=== PATIENT | male | born 1995 | race Caucasian/White ===

== ENCOUNTER 2017-01-12 07:36 | Emergency (ER) | payer MEDICAID ==
[~2017-01-12] VITALS: Ht 182.9 cm; Wt 127.0 kg
[2017-01-12 07:51] VITALS: BP 143/81
[2017-01-12 08:04] LABS: BILIRUBIN,URINE NEGATIVE (NEG); GLUCOSE,URINE NEGATIVE (NEG); NITRITE,URINE NEGATIVE (NEG); PROTEIN,URINE NEGATIVE (NEG-TRACE); UROBILINOGEN,URINE 0.2 mg/dL (0.2 mg/dL)
[2017-01-12] MEDS ORDERED: IV NORMAL SALINE 1000ML BAG 1,000 ML IV SCH (08:06)
[2017-01-12 08:10] LABS: BACTERIA,URINE 0 /HPF (0-FEW); RBC,URINE 0 /HPF (0-2); WBC,URINE 0 /HPF (0-4)
[2017-01-12] MEDS ORDERED: KETOROLAC 15 MG/ML VIAL. IV ONE (08:15)
[2017-01-12] MEDS ORDERED: ONDANSETRON PF 4 MG/2 ML VIAL. IV ONE (08:15)
--- NOTE | 2017-01-12 08:15 | ED.ADGEN ---
Past Medical History Past Medical History: Asthma, Diverticulitis Past Surgical History: No Surgical History Alcohol Use: Rarely Drug Use: None Adult General Chief Complaint Chief Complaint: ABDOMINAL PAIN HPI HPI Patient is a 21 year old man, history of asthma, diverticulitis, which was diagnosed one year ago, who presents to the emergency department with a complaint of nausea, vomiting, diarrhea, and abdominal pain located in left lower quadrant. Patient states that the abdominal pain feels "like when they diagnosed my diverticulitis". Is diaphoretic upon arousing the emergency department, states that he's had 2 episodes of vomiting, food and fluid, and 2 episodes of loose brown stool this morning associated with abdominal cramping, currently his pain is a 7 out of 10. He denies any sick contacts or exposures, denies any travel or surgery, no blood in his emesis or stool. Patient has not taken any medications prior to going to the ED today. Denies any urinary complaints, denies any injuries. Review of Systems Review of Systems Constitutional: Denies fever or chills. [] Eyes: Denies change in visual acuity. [] HENT: Denies nasal congestion or sore throat. [] Respiratory: Denies cough or shortness of breath. [] Cardiovascular: Denies chest pain or edema. [] GI: Cramping left lower quadrant abdominal pain, nausea, vomiting, diarrhea. No bloody stools or bloody emesis. : Denies dysuria. [] Musculoskeletal: Denies back pain or joint pain. [] Integument: Denies rash. [] Neurologic: Denies headache, focal weakness or sensory changes. [] Endocrine: Denies polyuria or polydipsia. [] Lymphatic: Denies swollen glands. [] Psychiatric: Denies depression or anxiety. [] Current Medications Current Medications Current Medications Medications (Trade) Dose Ordered Sig/Declan Start Time Stop Time Status Last Admin Dose Admin Info (Do NOT chart on this entry -- for MONITORING) 1 each PRN DAILY PRN 01/12/17 08:30 01/14/17 08:29 Iohexol (Omnipaque 300 Mg/ml) 75 ml 1X ONCE 01/12/17 08:30 01/12/17 08:31 DC 01/12/17 08:50 75 ML Ketorolac Tromethamine (Toradol) 10 mg 1X ONCE 01/12/17 08:15 01/12/17 08:16 DC 01/12/17 08:35 10 MG Levofloxacin (Levaquin) 750 mg 1X ONCE 01/12/17 10:00 01/12/17 10:01 DC 01/12/17 10:16 750 MG Metronidazole (Flagyl) 500 mg 1X ONCE 01/12/17 10:00 01/12/17 10:01 DC 01/12/17 10:16 500 MG Ondansetron HCl (Zofran) 4 mg 1X ONCE 01/12/17 08:15 01/12/17 08:16 DC 01/12/17 08:34 4 MG Oxycodone/ Acetaminophen (Percocet 10/325) 1 tab 1X ONCE 01/12/17 10:00 01/12/17 10:01 DC 01/12/17 10:16 1 TAB Sodium Chloride (Iv Sodium Chloride 0.9% 1000ml Bag) 1,000 ml @ 1,000 mls/hr Q1H 01/12/17 08:06 01/12/17 09:05 DC 01/12/17 08:32 1,000 MLS/HR Allergies Allergies Allergies Coded Allergies Type Severity Reaction Last Updated Verified No Known Drug Allergies 01/12/17 No Physical Exam Physical Exam Constitutional: Well developed, obese, no acute distress, patient diaphoretic, non-toxic appearance. [] HENT: Normocephalic, atraumatic, bilateral external ears normal, oropharynx moist, no oral exudates, nose normal. [] Eyes: PERRLA, EOMI, conjunctiva normal, no discharge. [] Neck: Normal range of motion, no tenderness, supple, no stridor. [] Cardiovascular:Heart rate regular rhythm, no murmur, S1, S2, no rubs or gallops. [] Lungs & Thorax: Bilateral breath sounds clear to auscultation , no wheezing, rhonchi, rales. No chest or crepitus or tenderness. [] Abdomen: Bowel sounds normal, soft, obese, moderate tenderness palpation in the left lower quadrant, and sero-pubic region, no rebound, rigidity, no guarding, no masses, no pulsatile masses. [] Skin: Warm, diaphoretic, no erythema, no rash. [] Back: No tenderness, no CVA tenderness. [] Extremities: No tenderness, no cyanosis, no clubbing, ROM intact, no edema. Negative Homans sign. [] Neurologic: Alert and oriented X 3, normal motor function, normal sensory function, no focal deficits noted. [] Psychologic: Affect normal, judgement normal, mood normal. [] Current Patient Data Vital Signs Vital Signs Date Time Temp Pulse Resp B/P Pulse Ox O2 Delivery O2 Flow Rate FiO2 01/12/17 10:16 18 01/12/17 07:51 97.6 81 143/81 99 Room Air 97.6 Lab Values Laboratory Tests Test 01/12/17 07:50 01/12/17 08:08 01/12/17 08:24 Urine Collection Type Unknown Urine Color Yellow Urine Clarity Clear Urine pH 6.0 Urine Specific [place] >=1.030 Urine Protein Negativemg/dL (NEG-TRACE) Urine Glucose (UA) Negativemg/dL (NEG) Urine Ketones (Stick) Negativemg/dL (NEG) Urine Blood Negative (NEG) Urine Nitrite Negative (NEG) Urine Bilirubin Negative (NEG) Urine Urobilinogen Dipstick 0.2mg/dL (0.2 mg/dL) Urine Leukocyte Esterase Negative (NEG) Urine RBC 0/HPF (0-2) Urine WBC 0/HPF (0-4) Urine Bacteria 0/HPF (0-FEW) Urine Mucus Slight/LPF Urine Opiates Screen Neg (NEG) Urine Methadone Screen Neg (NEG) Urine Barbiturates Neg (NEG) Urine Phencyclidine Screen Neg (NEG) Urine Amphetamine/Methamphetamine Neg (NEG) Urine Benzodiazepines Screen Neg (NEG) Urine Cocaine Screen Neg (NEG) Urine Cannabinoids Screen Pos (NEG) Urine Ethyl Alcohol Neg (NEG) White Blood Count 8.1x10^3/uL (4.0-11.0) Red Blood Count 5.89x10^6/uL (4.30-5.70) H Hemoglobin 16.3g/dL (13.0-17.5) Hematocrit 48.4% (39.0-53.0) Mean Corpuscular Volume 82fL (79-100) Mean Corpuscular Hemoglobin 28pg (25-35) Mean Corpuscular Hemoglobin Concent 34g/dL (31-37) Red Cell Distribution Width 12.7% (11.5-14.5) Platelet Count 195x10^3/uL (140-400) Neutrophils (%) (Auto) 81% (31-73) H Lymphocytes (%) (Auto) 10% (24-48) L Monocytes (%) (Auto) 7% (0-9) Eosinophils (%) (Auto) 2% (0-3) Basophils (%) (Auto) 0% (0-3) Neutrophils # (Auto) 6.6x10^3uL (1.8-7.7) Lymphocytes # (Auto) 0.8x10^3/uL (1.0-4.8) L Monocytes # (Auto) 0.6x10^3/uL (0.0-1.1) Eosinophils # (Auto) 0.2x10^3/uL (0.0-0.7) Basophils # (Auto) 0.0x10^3/uL (0.0-0.2) Sodium Level 140mmol/L (136-145) Potassium Level 4.2mmol/L (3.5-5.1) Chloride Level 104mmol/L (98-107) Carbon Dioxide Level 28mmol/L (21-32) Anion Gap 8 (6-14) Blood Urea Nitrogen 21mg/dL (8-26) Creatinine 1.0mg/dL (0.7-1.3) Estimated GFR (Cockcroft-Gault) 94.3 BUN/Creatinine Ratio 21 (6-20) H Glucose Level 100mg/dL (70-99) H Calcium Level 9.1mg/dL (8.5-10.1) Total Bilirubin 0.8mg/dL (0.2-1.0) Aspartate Amino Transferase (AST) 21U/L (15-37) Alanine Aminotransferase (ALT) 49U/L (16-63) Alkaline Phosphatase 98U/L (46-116) Total Protein 8.1g/dL (6.4-8.2) Albumin 4.2g/dL (3.4-5.0) Albumin/Globulin Ratio 1.1 (1.0-1.7) Lipase 170U/L (73-393) Lactic Acid Level 0.9mmol/L (0.4-2.0) Laboratory Tests 01/12/17 08:08 Laboratory Tests 01/12/17 08:08 Radiology/Procedures Radiology/Procedures [] [facility] [address] [place] [address] IMAGING REPORT Signed PATIENT: ELISABETH SCHWARZ ACCOUNT: [id number] : 1995 LOCATION: ER AGE: 21 SEX: M EXAM STATUS: REG ER ORD. PHYSICIAN: KERRY MILLER DO REASON: abd pain/v/d PROCEDURE: CT ABD PELV W/ IV CONTRST ONLY EXAM: CT abdomen/pelvis with contrast. HISTORY: 21-year-old male with left lower abdominal pain, vomiting and diarrhea since 4:00 AM. Patient with history of diverticulitis. TECHNIQUE: Computed tomographic images of the 75 cc of Omni 300. Multiplanar reformatting was performed. One or more of the following individualized dose reduction techniques were utilized for this examination: 1. Automated exposure control 2. Adjustment of the mA and/or kV according to patient size 3. Use of iterative reconstruction technique COMPARISON: None. FINDINGS: Visualized lung bases appear clear. The liver, gallbladder, spleen, pancreas, adrenal glands and kidneys demonstrate no focal abnormality. No dilated bowel loops are seen to suggest obstruction. Appendix is normal in caliber and appearance in the right lower quadrant. There is mild bowel wall thickening present involving the distal descending and sigmoid colon, with minimal adjacent soft tissue stranding. Scattered colonic diverticula are present in this region. No extraluminal air or adjacent focal fluid collection to suggest abscess is seen. No intra-abdominal or pelvic free fluid, free air or significant lymphadenopathy is seen. Urinary bladder is decompressed and not well evaluated. Aorta is normal in caliber. Overlying soft tissues and visualized osseous structures demonstrate no acute or suspicious finding. IMPRESSION: Mild bowel wall thickening involving the distal descending and sigmoid colon with adjacent diverticula, likely represents mild diverticulitis. No evidence of rupture or abscess formation. DICTATED and SIGNED BY: FRIDA LAWTON MD DATE: 01/12/17 0914 CC: KERRY MILLER DO; UNKNOWN PCP NAME ~ Course & Med Decision Making Course & Med Decision Making Pertinent Labs and Imaging studies reviewed. (See chart for details) Based on patient's history and examination, after discussion at bedside, we did proceed with a CT of the abdomen and pelvis to further elucidate her symptoms. CT reveals evidence of mild diverticulitis, no evidence of perforation or abscess formation. Patient's laboratory studies revealed no evidence of electrolyte abnormalities or systemic infection. Patient resting comfortably on reevaluation, did receive oral analgesia, and oral antibiotics, which he tolerated without issue. Patient states that he is ready be discharged home, he does have follow-up with his GI physician at . He states he'll be able to contact the office tomorrow, to schedule prompt follow-up, and voices understand concerning symptoms that should prompt return to the emergency department for additional evaluation. Patient discharged home with a 10 day course of antibiotics, pain medication, and antiemetics. Giving liquid diet instructions, patient voiced understanding and agreement with plan as stated, to follow-up as discussed, return to the ED for concerning symptoms, discharged home in stable condition with his significant other. Dragon Disclaimer Dragon Disclaimer This electronic medical record was generated, in whole or in part, using a voice recognition dictation system. Departure Impression: Primary Impression: Diverticulitis large intestine w/o perforation or abscess w/o bleeding Disposition: 01 HOME, SELF-CARE Condition: IMPROVED Scripts Oxycodone/Apap 5-325 (Percocet 5-325 Mg Tablet)1 Each Tablet1-2 Tab PO Q4-6HRS PRN PAIN #12 TAB Prov:KERRY MILLER DO 01/12/17 Levofloxacin 750 Mg Tablet1 Tab PO DAILY #9 TAB One tablet by mouth once daily for the next 10 days to treat infection. First dose given in the emergency department. Prov:KERRY MILLER DO 01/12/17 Metronidazole 500 Mg [id number] Mg PO TID #29 TAB One tablet by mouth 3 times daily for the next 10 days to treat infection. First dose given in the emergency department. Prov:KERRY MILLER DO 01/12/17 Ondansetron Hcl (Zofran)4 Mg Tablet1 Tab PO PRN Q6-8HRS PRN NAUSEA #12 TAB Prov:KERRY MILLER DO 01/12/17 KERRY MILLER DO Jan 12, 2017 08:15
[2017-01-12 08:26] LABS: BASO % 0 % (0-3); EOS % 2 % (0-3); HEMATOCRIT 48.4 % (39.0-53.0); HEMOGLOBIN 16.3 g/dL (13.0-17.5); LYMPH # 0.8 x10^3/uL (1.0-4.8); LYMPH % 10 % (24-48); MEAN CORPUSCULAR HEMOGLOBIN 28 pg (25-35); MEAN CORPUSCULAR HGB CONC 34 g/dL (31-37); MEAN CORPUSCULAR VOLUME 82 fL (79-100); MONO % 7 % (0-9); NEUT % 81 % (31-73); PLATELET COUNT 195 x10^3/uL (140-400); RED BLOOD COUNT 5.89 x10^6/uL (4.30-5.70); RED CELL DISTRIBUTION WIDTH 12.7 % (11.5-14.5); WHITE BLOOD COUNT 8.1 x10^3/uL (4.0-11.0)
[2017-01-12] MEDS ORDERED: CONTRAST GIVEN MC PRN (08:30)
[2017-01-12] MEDS ORDERED: IOHEXOL 300 MG/ML 75 ML VIAL IV ONE (08:30)
[2017-01-12 08:33] LABS: CALCIUM 9.1 mg/dL (8.5-10.1); GFR 94.3; POTASSIUM 4.2 mmol/L (3.5-5.1)
[2017-01-12 08:40] LABS: ALBUMIN 4.2 g/dL (3.4-5.0); ALBUMIN/GLOBULIN RATIO 1.1 (1.0-1.7); TOTAL BILIRUBIN 0.8 mg/dL (0.2-1.0); TOTAL PROTEIN 8.1 g/dL (6.4-8.2)
--- NOTE | 2017-01-12 09:20 | RAD ---
EXAM: CT abdomen/pelvis with contrast. HISTORY: 21-year-old male with left lower abdominal pain, vomiting and diarrhea since 4:00 AM. Patient with history of diverticulitis. TECHNIQUE: Computed tomographic images of the 75 cc of Omni 300. Multiplanar reformatting was performed. One or more of the following individualized dose reduction techniques were utilized for this examination: 1. Automated exposure control 2. Adjustment of the mA and/or kV according to patient size 3. Use of iterative reconstruction technique COMPARISON: None. FINDINGS: Visualized lung bases appear clear. The liver, gallbladder, spleen, pancreas, adrenal glands and kidneys demonstrate no focal abnormality. No dilated bowel loops are seen to suggest obstruction. Appendix is normal in caliber and appearance in the right lower quadrant. There is mild bowel wall thickening present involving the distal descending and sigmoid colon, with minimal adjacent soft tissue stranding. Scattered colonic diverticula are present in this region. No extraluminal air or adjacent focal fluid collection to suggest abscess is seen. No intra-abdominal or pelvic free fluid, free air or significant lymphadenopathy is seen. Urinary bladder is decompressed and not well evaluated. Aorta is normal in caliber. Overlying soft tissues and visualized osseous structures demonstrate no acute or suspicious finding. IMPRESSION: Mild bowel wall thickening involving the distal descending and sigmoid colon with adjacent diverticula, likely represents mild diverticulitis. No evidence of rupture or abscess formation.
[2017-01-12] MEDS ORDERED: METRONIDAZOLE 500 MG TABLET. PO ONE (10:00)
[2017-01-12] MEDS ORDERED: OXYCODONE/APAP 10/325 TABLET. PO ONE (10:00)
[2017-01-12] MEDS ORDERED: LEVOFLOXACIN 750 MG TABLET. PO ONE (10:00)
[2017-01-12 10:18] LABS: BARBITURATES NEG (NEG); BENZODIAZEPINES NEG (NEG); CANNABINOIDS POS (NEG); COCAINE NEG (NEG); METHADONE NEG (NEG); OPIATES NEG (NEG); PHENCYCLIDINE NEG (NEG)
[2017-01-12 10:21] LABS: ETHANOL, URINE NEG (NEG)
[2017-01-12] MEDS ORDERED: OXYC-323 PO (10:56)
[2017-01-12] MEDS ORDERED: METR500T4 PO (10:56)
[2017-01-12] MEDS ORDERED: ONDA4TAB7 PO (10:56)
[2017-01-12] MEDS ORDERED: LEVO750T5 PO (10:56)
== END 2017-01-12 11:06 | disposition home or self-care (01) ==
LOC: ER 07:36
DX: K57.32 Diverticulitis of large intestine without perforation or abscess without bleeding (principal); J45.909 Unspecified asthma, uncomplicated
CPT/HCPCS: 36415; 74177; 80053; 80305; 81001; 83605; 83690; 85027; 96361; 96374; 96375; 99285; J1885; J2405; J7030; Q9967; G0481